=== PATIENT | female | born 1960 | race Caucasian/White ===

== ENCOUNTER 2025-07-29 12:29 | Day surgery (SDC) | payer MEDICARE, OTHER, SELFPAY ==
--- NOTE | 2025-07-29 07:22 | EXP.HP ---
History of Present Illness *Admission Date: 07/29/25 *History of present illness: Mrs. Hong is a 64-year-old female who is here for diagnostic colonoscopy. The patient had surgery a on July 30 with new diagnosis of endometrial cancer. Her PET scan showed possible involvement of the anorectal canal. The report states that there is a large mass occupying majority of the leftward aspect of the uterus and extends from the fundus of the uterus into the cervix and also the vagina. This also appears to involve the rectum/anal canal with tumor extension. The examination is deemed medically necessary for diagnostic colonoscopy. The patient has been seen, interviewed and examined prior to the procedure by both myself and the anesthesia provider. [facility] Disclaimer: The information contained in this section may have been updated after the patient was seen, as this information can be updated by other users. Medical History (Updated 07/29/25 @ 13:36 by Wilder Elliott) Uterine cancer High cholesterol Diabetes Surgical History (Updated 07/29/25 @ 13:36 by Wilder Elliott) History of ankle surgery Family History (Updated 07/29/25 @ 13:37 by Wilder Elliott) Brother Diabetes Bladder cancer Social History (Updated 07/29/25 @ 14:18 by Dawson Quinones CRNA) Smoking Status: Never smoker alcohol intake: never substance use type: denies use current occupational status: retired Travel in the last 8 weeks?: None Have you lived/traveled outside [place] in past 30 days?: No Contact w/someone who lives/traveled outside US past 30 days?: No Exposure to someone with infectious disease in past 14 days?: No Do you have a fever (greater than 100.4 F or 38 C)?: No Have you tested positive for COVID-19?: No Exposed to someone with COVID-19 in past 14 days?: No Do you have a sore throat?: No Do you have a cough?: No Do you have any weakness?: No Do you have any diarrhea?: No Are you experiencing any unusual bleeding?: No Do you have any muscle aches/pain?: No Do you have any abdominal pain?: No Are you experiencing loss of taste or smell?: No Review of Systems Review of Systems Review of systems (narrative): Negative *Cardiovascular Comments: Negative *Gastrointestinal Comments: Negative *Genitourinary Comments: Negative *Musculoskeletal Comments: Negative *Neurologic Comments: Negative Meds Home Medications and Allergies Home Medications ?Medication ?Instructions ?Recorded ?Confirmed ?Type atorvastatin 20 mg tablet 20 mg PO DAILY 07/29/25 07/29/25 History ferrous sulfate 325 mg (65 mg 325 mg PO QODHS 07/29/25 07/29/25 History iron) tablet hydrochlorothiazide 25 mg tablet 25 mg PO DAILY 07/29/25 07/29/25 History metformin 500 mg tablet 500 mg PO BID 07/29/25 07/29/25 History sertraline 50 mg tablet 50 mg PO DAILY 07/29/25 07/29/25 History New Prescriptions to Start Prescriptions: Allergies Allergy/AdvReac Type Severity Reaction Status Date / Time No Known Allergies Allergy Verified 07/29/25 13:37 Exam *Routine HEENT Exam Head: Present normocephalic Eye: Present EOMI and PERRL ENT: Present mucous membranes moist *Routine Neck Exam Neck: Present supple *Routine Respiratory Exam Respiratory: Present CTA bilaterally *Routine Cardiovascular Exam Cardiovascular: Present RRR *Routine Abdominal Exam Abdominal: Present soft and normoactive bowel sounds; Absent tenderness *Routine Rectal Exam Rectal:: deferred *Routine Genitalia Exam Genitalia:: deferred *Routine Extremities Exam Extremities: Absent cyanosis, clubbing or edema *Routine Skin Exam Skin: Present warm; Absent rash *Routine Neurological Exam Neurological: Present alert and oriented X3 Assessment and Plan *Assessment and plan (1) Endometrial cancer: Status: Acute Category: Medical Code(s): C54.1 - Malignant neoplasm of endometrium (2) 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 PET scan showing direct extension from endometrial cancer involving rectum and anal canal is the preprocedural diagnosis. The patient will be anesthetized/sedated using MAC sedation. The patient has been seen and examined. Cardiac and lung assessment prior to the examination is stable. Proceed with planned diagnostic colonoscopy.
[2025-07-29 13:46] VITALS: BP 159/92; PULSE 96; RESP 16; TEMP 36.3; O2SAT 98
[2025-07-29 13:51] VITALS: BMI 37.9
[2025-07-29] MEDS: LACTATED RINGERS 1000ML 1,000 ML 50 ML IV (13:53)
[2025-07-29 13:55] LABS: POC Glucose,Bedside 145 gm/dL (70-110)
--- NOTE | 2025-07-29 14:14 | EXP.ANES.CKL ---
[facility] Disclaimer: The information contained in this section may have been updated after the patient was seen, as this information can be updated by other users. Medical History (Updated 07/29/25 @ 13:36 by Wilder Elliott) Uterine cancer High cholesterol Diabetes Surgical History (Updated 07/29/25 @ 13:36 by Wilder Elliott) History of ankle surgery Family History (Updated 07/29/25 @ 13:37 by Wilder Elliott) Brother Diabetes Bladder cancer Social History Smoking Status: Never smoker alcohol intake: never substance use type: denies use current occupational status: retired Travel in the last 8 weeks?: None [facility] Anesthesia Checklist Patient Identification Patient Identification: Arm Band and Family Structural Data Admitted From: Home Planned Operative Procedure/s: Colonoscopy Consent for Planned Operative Procedure(s) Verified: Yes Verified Documents: Surgical Consent and History and Physical NPO Status Verified Time NPO: 00:00 Additional verifications Patient : No Anesthesia Reactions: No Hx Blood Transfusions: No Blood Transfusion Reaction: No Cephalosporin Allergy: No Previous Colonoscopy: No Airway Assessment Mallampati Score:: Class II C-Spine Mobility Assessed: Yes TMJ Mobility Assessed: Yes Dentition: Good Dentition Neurological Assessment Level of Consciousness: Awake, Alert, Appropriate and Follows Commands Hx Seizures: No Numbness or tingling in extremities: No Anesthesia Plan Anesthesia Risk discussed: Yes ASA Class: II Anesthesia Type: MAC
--- NOTE | 2025-07-29 14:46 | P.PCN_ITS ---
[facility] Procedure Note Date: 07/29/25 Time: 15:18 Procedure Note:: Colonoscopy Procedure Report: Colonoscopy with cold biopsy Endoscopist: Ramy Davila II, MD Referring physician: Maranda Mendez MD [address] [place] [address]/Kvng Richey MD, [address] [facility] , [place] [address] Date of Procedure: July 29, 2025 Equipment: Olympus [id number] adult colonoscope Sedation: MAC sedation Indication: Mrs. Hong is a 64-year-old female who is here for diagnostic colonoscopy. The patient has upcoming surgery on July 30 with new diagnosis of endometrial mass with suspected endometrial cancer. Her PET scan showed possible involvement of the anorectal canal. The PET scan report states that there is a large mass occupying majority of the leftward aspect of the uterus and extends from the fundus of the uterus into the cervix and also the vagina. This also appears to involve the rectum/anal canal with tumor extension. The patient does report smaller caliber stools and some pelvic pressure. She reports no rectal bleeding, abdominal pain, unintentional weight loss or family history of colon cancer. She did have a normal cystoscopy. She has never had a colonoscopy. She does state that her brother had bladder cancer. The e xamination is deemed medically necessary for diagnostic colonoscopy. Procedure: Prior to the procedure, a history and physical exam was performed, and patient's medications and allergies were reviewed. The risks, benefits and alternatives of the sedation and procedure were discussed with the patient. All questions were answered and informed consent was obtained. The patient was brought to the procedure room. Patient identification and proposed procedure were verified by the physician and the nurse. The patient was placed in a left lateral decubitus position and the scope was passed under direct vision. Throughout the procedure, the patient's blood pressure, pulse, and oxygen saturations were monitored continuously. The colonoscopy was accomplished without difficulty. The patient tolerated the procedure well. Findings: On digital rectal examination there was normal rectal tone. There were small external tags. There was no rectal mass or anal mass or anal stenosis. The anterior rectum was soft and there was no extrinsic compression of the anterior rectum. The colonoscope was introduced through the anal canal to the rectum and advanced to the cecum. The ileocecal valve and appendiceal orifice were identified. The scope was advanced a short distance into the ileum which appeared grossly normal. The scope was then withdrawn into the colon. The cecum, ascending, transverse, descending, sigmoid and rectum were grossly normal. There were a few very shallow diverticula in the sigmoid colon. There was a single 2 to 3 mm polyp in the rectum removed via cold biopsy. There were no other mucosal abnormalities identified. Upon retroflexion within the rectum there were grade 1-2 internal hemorrhoids. The preparation was excellent throughout with Hershey Preparation Score of 9. The cecal time was 12 minutes. Impression: 1. Diminutive 2 to 3 mm rectal polyp 2. Mild sigmoid diverticulosis 3. Grade 1-2 internal hemorrhoids Plan: There was no involvement of the rectum or anal canal with endometrial cancer extension. There was also no palpable extrinsic compression in the anterior rectum. I will follow-up the polyp histology.
[2025-07-29 15:20] VITALS: BP 130/79; PULSE 80; RESP 18; TEMP 36.3; O2SAT 95
[2025-07-29 15:30] VITALS: BP 115/87; PULSE 80; RESP 18; O2SAT 98
[2025-07-29 15:38] VITALS: BP 134/87; BP 144/86; PULSE 82; PULSE 83; RESP 18; O2SAT 99
== END 2025-07-29 15:45 | disposition home or self-care (01) ==
PROVIDERS: PCP Family Medicine; Visit Provider Internal Medicine Gastroenterology
PROC: 0DJD8ZZ Inspection of Lower Intestinal Tract, Via Natural or Artificial Opening Endoscopic (ICD-10-PCS; CPT 45378; principal; 2025-07-29 15:00)
DX: D12.8 Benign neoplasm of rectum (principal); K57.30 Diverticulosis of large intestine without perforation or abscess without bleeding; K64.0 First degree hemorrhoids; K64.1 Second degree hemorrhoids; C54.1 Malignant neoplasm of endometrium; C78.5 Secondary malignant neoplasm of large intestine and rectum; E11.9 Type 2 diabetes mellitus without complications; E78.5 Hyperlipidemia, unspecified; Z79.84 Long term (current) use of oral hypoglycemic drugs
CPT/HCPCS: 45380; 82962; 88305; J2003; J2704; J7120